=== PATIENT | female | born 1990 | race Caucasian/White ===

== ENCOUNTER 2025-07-05 12:00 | Outpatient (CLI) | payer OTHER | END 2025-07-05 12:01 | disposition home or self-care (01) | LOC: SCSRAD 12:00 | PROVIDERS: ATTEND Family Medicine | DX: S49.91XA Unspecified injury of right shoulder and upper arm, initial encounter (principal); S69.91XA Unspecified injury of right wrist, hand and finger(s), initial encounter; S52.501A Unspecified fracture of the lower end of right radius, initial encounter for closed fracture ==